=== PATIENT | male | born 1990 ===

== ENCOUNTER → 2020-09-05 08:31 | Outpatient (BNVA) | payer OTHER, SELFPAY | PROVIDERS: PCP Physician Assistant; Referring Provider Physician Assistant; Visit Provider Psychiatry & Neurology Neurology | DX: Z76.89 Persons encountering health services in other specified circumstances (principal) ==

== ENCOUNTER 2020-10-19 16:57 | Outpatient (REF) | payer OTHER, SELFPAY | END 2020-10-19 16:58 | disposition home or self-care (01) | LOC: HO.LAB 16:57 | PROVIDERS: Visit Provider Internal Medicine | DX: Z20.828 Contact with and (suspected) exposure to other viral communicable diseases (principal) | CPT/HCPCS: C9803; U0003 ==

== ENCOUNTER 2020-10-30 10:00 | Outpatient (REF) | payer OTHER, SELFPAY ==
[2020-10-30 10:33] LABS: COVID-19 Test Positive (Negative)
== END 2020-10-30 10:01 | disposition home or self-care (01) ==
LOC: HO.EMPCOV 10:00
PROVIDERS: Visit Provider Internal Medicine
DX: Z20.828 Contact with and (suspected) exposure to other viral communicable diseases (principal)
CPT/HCPCS: 87635; C9803

== ENCOUNTER 2021-01-03 14:57 | Outpatient (REF) | payer OTHER, SELFPAY ==
--- NOTE | ~2021-01-03 | US_ITS ---
EXAMINATION: US RETROPERITONEAL LIMITED (RENAL ONLY) CLINICAL INFORMATION: Nephrolithiasis. COMPARISON: None TECHNIQUE: Routine weeks-scale imaging of kidneys is performed. FINDINGS: RIGHT KIDNEY: 11.5 x 6.0 x 5.8 cm (SAG x AP x TRV). The kidney is normal in size, contour, and echogenicity. Renal cortical thickness is normal. No calculi or focal parenchymal lesions. No hydronephrosis. LEFT KIDNEY: 1.7 x 1.2 x 1.7 cm (SAG x AP x TRV). The kidney is normal in size, lobulated contour, and normal echogenicity. Renal cortical thickness is normal. No calculi or focal parenchymal lesions. No hydronephrosis. There is an anechoic cyst in the upper pole measuring 1.7 x 1.2 x 1.7 cm. US/US renal BI IMPRESSION: Small anechoic cyst upper pole left kidney. No echogenic stones, solid mass or hydronephrosis seen in either kidney.
== END 2021-01-03 14:58 | disposition home or self-care (01) ==
LOC: HO.US 14:57
PROVIDERS: Visit Provider Urology
DX: N20.0 Calculus of kidney (principal)
CPT/HCPCS: 76775

== ENCOUNTER → 2023-03-05 10:20 | Outpatient (BNVA) | payer OTHER, SELFPAY | PROVIDERS: PCP Physician Assistant; Visit Provider Physician Assistant | DX: Z13.89 Encounter for screening for other disorder (principal) | CPT/HCPCS: 99203 ==

== ENCOUNTER → 2023-03-12 09:26 | Outpatient (BNVA) | payer OTHER, SELFPAY | PROVIDERS: PCP Physician Assistant; Visit Provider Physician Assistant | DX: Z13.89 Encounter for screening for other disorder (principal) | CPT/HCPCS: 99213 ==

== ENCOUNTER → 2023-03-27 10:25 | Outpatient (BNVA) | payer OTHER, SELFPAY | PROVIDERS: PCP Nurse Practitioner Family; Visit Provider Physician Assistant | DX: Z13.89 Encounter for screening for other disorder (principal) | CPT/HCPCS: 99213 ==

== ENCOUNTER → 2023-04-03 11:10 | Outpatient (BNVA) | payer OTHER, SELFPAY | PROVIDERS: PCP Nurse Practitioner Family; Visit Provider Physician Assistant | DX: Z13.89 Encounter for screening for other disorder (principal) | CPT/HCPCS: 99213 ==

== ENCOUNTER 2023-04-10 09:00 | Outpatient (RCR) | payer OTHER, SELFPAY ==
--- NOTE | 2023-03-13 09:45 | MHC.PT.EP ---
[facility] [place] Office [place] Office [place] Office [address] Suri Ledbetter [address] [phone] F: [phone] F: [phone] F: [phone] F: [phone] Physical Therapy Plan of Care Date of Evaluation: Date of Surgery: Diagnosis: Left lumbar strain Assessment: Patient is a 33 year old R handed male who presents with s/s consistent with left lumbar strain, low back pain. He works with daily job demands including maintenance. His job has significant physical demands requiring optimal body mechanics. Patient past medical history is unremarkable. Current impairments include pain, body mechanics, posture, ROM, strength, activity tolerance and functional mobility. Functional limitations include decreased ability to squat, bend, lift, sit, walk, stand, and sleep. Patient is motivated with good rehab potential. Skilled PT will address impairments and functional limitations in order to achieve goals. Frequency and Duration: The patient will be seen 2x/week for 5 weeks Short Term Goals: I with HEP - 2 weeks Demo proper transfer and lifting body mechanics - 3 weeks 90/90 lacking < 20 - 3 weeks Lumbar AROM 75% and pain free all directions - 3 weeks Shelter Goals: Oswestry 10% or less - 5 weeks Pain free return to all ADLs and work duties - 5 weeks Lumbar AROM 100% and pain free - 5 weeks Treatment Plan: Modalities to reduce pain, spasms and effusion. Manual therapy to restore motion and function. Therapeutic exercise to improve strength and flexibility. Neuromuscular re-education for posture and balance. Therapeutic activities to return to functional activities of daily living. Electronically signed by: Jaret Martinez, PT Please sign and return to therapist. Thank you for your referral.
--- NOTE | 2023-05-13 08:18 | MHC.PT.DC ---
[facility] [place] Office [place] Office [place] Office [address] Suri Ledbetter [address] [phone] F: [phone] F: [phone] F: [phone] F: [phone] Physical Therapy Discharge Report Diagnosis: Left lumbar strain Date of Surgery: Date of Evaluation: 03/13/23 Date of Discharge: 04/18/23 Treatments to Date: 6 Cancellations to Date: No Shows to Date: Discharge Status: Achieved Goals Improved Function Independent with HEP Discharge Summary: 04/10/23: we reviewed ex and core stab, mechanics and postures. pt with no s/s at this time. we will d/c to HEP as he is I with HEP and has met all goals. 04/07/23: continues good progress on s/s. we will plan to d/c to HEP NV. 04/03/23: pt progressing well overall. progressing on goals. likely on pace to d/c to HEP next week. 03/31/23: pt continues to feel better overall, good carryover and body mechanics. follows cues well. 03/27/23: pt has been feeling much better overall. no radicular s/s. lacking 24 b/l. improved understanding of body mechanics. continue to progress as tolerated. 03/24/23: reduced s/s overall with skilled PT. compliant with HEP and notes s/s have improved with program. we were able to progress today and progress HEP. Patient is a 33 year old R handed male who presents with s/s consistent with left lumbar strain, low back pain. He works with daily job demands including maintenance. His job has significant physical demands requiring optimal body mechanics. Patient past medical history is unremarkable. Current impairments include pain, body mechanics, posture, ROM, strength, activity tolerance and functional mobility. Functional limitations include decreased ability to squat, bend, lift, sit, walk, stand, and sleep. Patient is motivated with good rehab potential. Skilled PT will address impairments and functional limitations in order to achieve goals. Electronically signed by: Jaret Martinez, PT Please sign and return to therapist. Thank you for your referral.
== END 2023-05-13 08:18 | disposition home or self-care (01) ==
LOC: HO.PTCHIC 09:00
PROVIDERS: PCP Physician Assistant; Visit Provider Physician Assistant
DX: S39.012D Strain of muscle, fascia and tendon of lower back, subsequent encounter (principal)
CPT/HCPCS: 97110; 97161

== ENCOUNTER 2024-03-23 15:03 | Outpatient (AMB) | payer OTHER, SELFPAY ==
--- NOTE | 2024-03-23 15:42 | MHC.PC.OV ---
Vital Signs 03/23/24 15:45 Height 5 ft 7 in Weight 192 lb 6 oz BMI 30.1 BP 120/76 Blood Pressure Location Lt brachial Position Sitting Pulse 90 Pulse Source Pulse Oximeter Pulse Oximetry (%) 98 Oxygen Delivery Method Room Air Intake Visit Reasons: Annual exam Intake Note: Patient is here today for a physical. Supplier Relationship Director Required: No Accompanied by: Self / Same As Patient Allergies No Known Allergies [No Known Allergies*] Allergy (Verified 03/23/24 15:57) Medication List - Last Reconciled 03/23/24 by Derrick Cerrato PA-C No Known Home Meds Tobacco use date assessed: 03/23/24 Dental Screening Dental Screen Date: 03/23/24 Did you have a dental visit in the last 12 months?: Yes Did you have a dental problem in the last 6 months where you did not have access to dental care?: No Was dental information given to patient?: Patient has dentist HPI Annual exam HPI Details Patient is a 34-year-old male here today for routine annual physical. Patient has a past medical history significant for vitamin-D deficiency and slightly elevated liver enzymes. Concern--> no concerns today. Willing to get fasting labs done Vaccine: Declined FLu and COVID up-to-date with tetanus vaccine [facility] Surgical History No pertinent past surgical history Family History Father No problems noted. Mother Diabetes Acute CVA (cerebrovascular accident), Onset Age: 0m 0d Brother In good health Sister In good health Son In good health Son In good health Daughter In good health Daughter In good health Daughter In good health Social History (Updated 03/23/24 @ 16:00 by Derrick Cerrato PA-C) Housing: Apartment Alcohol intake: never Patient Tobacco Use Status: Former Tobacco user Quit Date: 2009 Tobacco use type: Cigarette e-Cigarette/Vaping Use: Never Used service: No Current occupational status: employed Current occupation: [employer] Cognitive needs: No Hearing needs: No Vision needs: No Questionnaire PHQ-9 Over the last 2 weeks, how often have you been bothered by any of the following problems? 1. Little interest or pleasure in doing things: not at all 2. Feeling down, depressed, or hopeless: not at all 3. Trouble falling or staying asleep, or sleeping too much: not at all 4. Feeling tired or having little energy: not at all 5. Poor appetite or overeating: not at all 6. Feeling bad about yourself - or that you are a failure or have let yourself or your family down: not at all 7. Trouble concentrating on things, such as reading the newspaper or watching television: not at all 8. Moving or speaking so slowly that other people could have noticed. Or the opposite - being so fidgety or restless that you have been moving around a lot more than usual: not at all 9. Thoughts that you would be better off or of hurting yourself in some way: not at all Total score: 0 Depression Screening Interpretation: Negative Depression Screening Done: Yes 62288 - PHQ-9 Billing: Yes Source: Developed by Drs. Jose Urias, Daniela Montanez, Bola Avery and colleagues, with an educational vesna from [employer]. Thrive Questionnaire Date Thrive assessed: 03/23/24 I am a: Patient What is your living situation today?: I have a steady place to live Within the past 12 months, did the food you bought not last and you didn't have the money to get more?: Never true Within the past 12 months, did you worry whether your food would run out before you got money to buy more?: Never true Do you have trouble paying for medicines?: No Do you have trouble getting transportation to medical appointments?: No Do you have trouble paying your heating and electricity bill?: No Do you have trouble taking care of your child, family member or friend?: No Do you have trouble with day-to-day activities such as bathing, preparing meals, shopping, managing finances, etc.?: No Are you currently unemployed and looking for a job?: No Are you interested in more education?: No Please select the resources that you would like help with: None Currently or been in a relationship where the following occur: no concerns reported THRIVE Score: 0 AUDIT C Alcohol Use Questionnaire (AUDIT-C) 1. How often do you have a drink containing alcohol?: Never 3. How often do you have six or more drinks on one occasion?: Never Total Score: 0 Score Reviewed/Action Taken: No MOSES-7 AMB Questionnaire MOSES-7 Date MOSES - 7 assessed: 03/23/24 Feeling nervous, anxious, or on edge: 0 = Not at all Not being able to stop or control worryin = Not at all Worrying too much about different things: 0 = Not at all Trouble relaxin = Not at all Being so restless that it is hard to sit still: 0 = Not at all Becoming easily annoyed or irritable: 0 = Not at all Feeling afraid as if something awful might happen: 0 = Not at all Total MOSES-7 score (0-4 normal; 5-9 mild; 10-14 moderate; 15-21 severe): 0 Source: Developed by Drs. Jose Urias, Daniela Montanez, Bola Avery and colleagues, with an educational vesna from [employer]. MOSES-7 Assessment Billing MOSES-7 Assessment Tool: MOSES-7 Assessment 28555 Review of Systems Const Denies body aches, Denies chills, Denies excessive sweating, Denies fatigue, Denies fever(s) and Denies headache(s) Eyes Denies blurry vision ENT Denies dysphagia, Denies vertigo, Denies dizziness, Denies headache(s), Denies hearing loss and Denies tinnitus Card Denies chest pain, Denies chest pain with activity, Denies syncope, Denies irregular heart rhythm and Denies dyspnea Resp Denies chest congestion, Denies cough, Denies hemoptysis, Denies dyspnea and Denies wheezing GI Denies abdominal pain, Denies melena, Denies hematochezia, Denies coffee ground emesis, Denies dysphagia, Denies diarrhea, Denies nausea and Denies vomiting Denies difficulty urinating, Denies dysuria, Denies urinary frequency, Denies urinary hesitancy and Denies urinary urgency Musc Denies arthralgias, Denies limited range of motion, Denies muscle cramps and Denies muscle weakness Skin/Breast Denies rash and Denies skin ulcer Neuro Denies Abnormal speech present, Denies confusion, Denies vertigo, Denies dizziness, Denies syncope, Denies headache(s), Denies memory loss and Denies seizure-like activity Psych Denies anxiety, Denies confusion, Denies depression, Denies memory loss, Denies panic attacks and Denies paranoia Endo Denies excessive sweating, Denies fatigue, Denies flushing, Denies polydipsia and Denies polyuria Shai/Lymph Denies easy bleeding and Denies easy bruising Aller/Immun Denies wheezing Physical exam (Primary Care) Vital Signs: Last Vital Signs Pulse 90 03/23/24 15:45 BP 120/76 03/23/24 15:45 Pulse Ox 98 03/23/24 15:45 Oxygen Delivery Method Room Air 03/23/24 15:45 BMI result Body Mass Index 30.1 Tobacco/Smoking Status: Tobacco use Status Tobacco use date assessed 03/23/24 03/23/24 15:52 Patient Tobacco Use Status Former Tobacco user 03/23/24 16:00 Tobacco use type Cigarette 03/23/24 16:00 e-Cigarette/Vaping Use Never Used 03/23/24 16:00 PHQ-9: PHQ-9 Score PHQ-9: Total score 0 03/23/24 16:01 Depression Screening Interpretation: Negative Thrive Assessment: Date of Thrive Assessment Date Thrive assessed 03/23/24 03/23/24 15:43 Currently or been in a relationship where the following occur: no concerns reported Const General: cooperative, comfortable, no acute distress, alert and awake; No confusion Nutritional Appearance: well nourished Orientation/consciousness: oriented to person, oriented to place, patient oriented x3 and No confusion HENMT Head: Yes normocephalic Ears: external ears normal and TM's normal bilaterally General nose exam: Normal nasal mucous membranes and turbinates present Face and sinus: No sinus tenderness Mouth: Normal oral and palatal mucosa present and tongue normal Teeth and gingiva: dentition normal and gingiva normal Throat: Yes posterior oropharynx normal, Yes tonsils normal and Yes uvula midline Eyes Conjunctivae: conjunctivae normal Sclerae: sclerae normal Pupils: Equal, round and reactive pupils present EOM: EOMs intact bilaterally Direct Ophthalmoscopy: No no photophobia Neck Neck: Yes no lymphadenopathy, No tender and Yes no JVD Thyroid: Thyroid normal Carotids: no bruits Chest Chest palpation & inspection: no tenderness Resp Effort & Inspection: normal respiratory effort, no audible wheezes, not labored and no stridor Auscultation: no crackles, no rales, no rhonchi and no wheezes Cardio Jugular venous distension: no JVD Rate: regular rate, not bradycardic and not tachycardic Rhythm: regular rhythm Heart sounds: no murmurs and normal S1 and S2 Bruits: no carotid bruits Peripheral pulses: Peripheral pulses 2+ throughout GI Inspection: Yes normal to inspection, No abdominal wall ecchymosis and No visible herniation Palpation (GI): Soft to palpation, nontender, no guarding, not rigid and No hepatosplenomegaly present Auscultation: normoactive bowel sounds General: Yes no CVA tenderness Back/Spine/Pelvis Back: no CVA tenderness and No back tenderness Cervical Spine: cervical ROM normal Thoracic/Lumbar Spine: thoracic and lumbar spine normal to inspection, straight leg raise negative bilaterally, No thoraco-lumbar ROM limited and No lumbar spinal tenderness Skin General skin exam: no rashes or lesions noted and dry skin Lesions: no lesions Rashes: no rashes Wounds: no wounds Neuro General: oriented to person, oriented to place, patient oriented x3, CN's II-XI intact bilaterally and No confusion Cranial nerves: Yes Equal, round and reactive pupils present and Yes Normal accommodation reflex present Cognition (Neuro): normal cognition Speech: No Abnormal speech present Gait exam (Neuro): Normal gait present Motor exam (neuro): 5/5 motor strength present throughout Extrem Right upper extremity: full ROM; no cyanosis Left upper extremity: full ROM; no cyanosis Right lower extremity: no edema Left lower extremity: no edema Psych Appearance: grossly normal Mental Status: mental status grossly normal Speech and movement: Normal speech and movement present Affect: normal affect Attitude: cooperative Thought process: Normal thought process present Assessment and Plan Assessment & Plan (1) Annual physical exam: Code(s): Z00.00 - Encounter for general adult medical examination without abnormal findings (2) Screening for diabetes mellitus (DM): Code(s): Z13.1 - Encounter for screening for diabetes mellitus (3) Vitamin D deficiency: Code(s): E55.9 - Vitamin D deficiency, unspecified Plan: Will recheck his vitamin-D Orders: Orders Vitamin D 25-OH Total 03/23/24 E55.9 - Vitamin D deficiency, unspecified Comprehensive [place]. Panel Fast 03/23/24 Z13.1 - Encounter for screening for diabetes mellitus Coding Level of Care Code Est Pt Prev Care 18-39y(98240) Diagnoses Annual physical exam Z00.00 Screening for diabetes mellitus (DM) Z13.1 Vitamin D deficiency E55.9 Additional Codes MOSES-7 Assessment Billing - MOSES-7 Assessment Tool: MOSES-7 Assessment 00220 ([id number])
[2024-03-23 15:45] VITALS: BP 120/76; PULSE 90; O2SAT 98; BMI 30.1
== END 2024-03-23 16:11 | disposition home or self-care (01) ==
PROVIDERS: PCP Physician Assistant; Visit Provider Physician Assistant
DX: Z00.00 Encounter for general adult medical examination without abnormal findings (principal); Z13.1 Encounter for screening for diabetes mellitus; E55.9 Vitamin D deficiency, unspecified
CPT/HCPCS: 99395

== ENCOUNTER 2024-07-19 09:54 | Emergency (ER) | payer OTHER, SELFPAY ==
--- NOTE | ~2024-07-19 | XR_ITS ---
EXAMINATION: XR CHEST CLINICAL INFORMATION: Chest tightness and cough COMPARISON: None available. TECHNIQUE: 2 views of the chest were obtained. FINDINGS: Lungs are well-inflated and clear. Trachea is midline in position. No interstitial disease, consolidation or mass. No pleural effusion or pneumothorax. Cardiac silhouette and pulmonary vessels are normal in size. The mediastinum and deena have normal contour. Thoracic spine and ribs are unremarkable. Mild pectus excavatum. The visualized upper abdomen is normal. XR/XR chest 2V IMPRESSION: Lungs have a normal appearance. No acute cardiopulmonary abnormality.
[2024-07-19 10:10] VITALS: BP 112/72; PULSE 76; RESP 16; TEMP 36.9; O2SAT 96; BMI 28.9
--- NOTE | 2024-07-19 11:00 | ED_ITS ---
HPI - URI/Sore Throat General Chief Complaint: Upper Respiratory Symptoms Stated Complaint: Sore throat Time Seen by Provider: 07/19/24 10:46 Source: patient, RN notes reviewed and old records reviewed Mode of arrival: ambulatory Limitations: no limitations History of Present Illness ED Provider: Carmenza Tomas PA-C HPI Narrative: 34 year old male presents today with 1 week of a sore throat and generally feeling unwell. States sore throat is burning and painful when swallowing. Reports subjective fever 2-3 days ago at night. Endorses myalgias, headache, sore throat, subjective fever, non-productive cough. Denies, fatigue, tiredness, chest pain, SOB, difficulty breathing, no difficulty eating or decreased appetite, NVD, abdominal pain. Reports there are sick contacts around him. Recen t travel to [place]. Has not tested for any viral illness. Related Data Home Medications ?Medication ?Instructions ?Recorded ?Confirmed No Known Home Meds 03/23/24 03/23/24 Allergies Allergy/AdvReac Type Severity Reaction Status Date / Time No Known Allergies Allergy Verified 07/19/24 10:13 [No Known Allergies*] Review of Systems Review of Systems: Constitutional: +Fever (subjective), No Chills ENT/Mouth: No Ear Pain, No Nasal Congestion, No Sinus Pain, No Hoarseness, +sore throat, + Rhinorrhea, No Swallowing Difficulty Cardiovascular: No Chest Pain, No SOB Respiratory: +Cough(non-productive), No Sputum, No Wheezing Gastrointestinal: No Nausea, No Vomiting, No Diarrhea, No Constipation, No Abdominal pain Musculoskeletal: + Myalgias, No Joint Swelling Skin: No Skin Lesions, No rash Neuro: No Weakness Yes all other systems are reviewed and are negative Constitutional: Constitutional: Reports as per HPI [facility] Past Medical History Attestation statement: The following information was validated with the patient. Source: old records reviewed Surgical History No pertinent past surgical history Family History Family History Father No problems noted. Mother Diabetes Acute CVA (cerebrovascular accident), Onset Age: 0m 0d Brother In good health Sister In good health Son In good health Son In good health Daughter In good health Daughter In good health Daughter In good health Social History Social History Housing: Apartment Alcohol intake: never Patient Tobacco Use Status: Former Tobacco user Tobacco use type: Cigarette e-Cigarette/Vaping Use: Never Used Advance Directives: No Advance Directives Information Provided: No service: No Current occupational status: employed Current occupation: [employer] Cognitive needs: No Hearing needs: No Vision needs: No Physical Exam Vital Signs: Vital Signs: Last Vital Signs Temp 98.4 F 07/19/24 10:10 Pulse 76 07/19/24 10:10 Resp 16 07/19/24 10:10 BP 112/72 07/19/24 10:10 Pulse Ox 96 07/19/24 10:10 BMI result Body Mass Index 28.9 Const: General: cooperative, healthy appearing and no acute distress Nutritional Appearance: well nourished Orientation/consciousness: patient oriented x3 Limitations: no limitations HEENT: Head: Yes normal to inspection and Yes atraumatic Ears: hearing grossly normal bilaterally, external ears normal and TM's normal bilaterally General nose exam: Normal external nose present Face and sinus: Yes normal facial exam Mouth: Normal oral and palatal mucosa present and no drooling Teeth and gingiva: dentition normal Throat: Yes posterior oropharynx normal, Yes tonsils normal, Yes uvula midline, No peritonsillar mass, No uvula laterally displaced and No uvular edema Eyes: General: appearance normal, both eyes and all related structures EOM: EOMs intact bilaterally Direct Ophthalmoscopy: normal light reflex Neck: Neck: Yes normal visual inspection, Yes full ROM, Yes no lymphadenopathy, Yes no meningeal signs and Yes trachea midline Thyroid: Thyroid normal Chest: Chest palpation & inspection: normal inspection of the chest Resp: Effort & Inspection: normal respiratory effort, no respiratory distress and no stridor Auscultation: clear to auscultation bilaterally and no wheezes Cardio: Rate: regular rate Heart sounds: S1 normal heart sound present and S2 normal heart sound present GI: Inspection: Yes normal to inspection Palpation (GI): Soft to palpation, nontender, no guarding and not rigid Skin: Rashes: no rashes Wounds: no wounds Neuro: General: patient oriented x3, tone normal and no meningeal signs Cranial nerves: Yes CN's II-XII intact bilaterally Gait exam (Neuro): Normal gait present Extrem: General: Yes normal to inspection Psych: Appearance: grossly normal Mental Status: mental status grossly normal Speech and movement: Normal speech and movement present Affect: normal affect Attitude: cooperative Thought process: Normal thought process present Thought content: Normal thought content present Insight: Good insight present (Psych) Judgement: Good judgement present (Psych) Course Course Course Narrative: XR chest 2V IMPRESSION: Lungs have a normal appearance. No acute cardiopulmonary abnormality. -COVID/flu/RSV and rapid strep negative Results discussed with patient including worrisome signs and symptoms and strict return precautions, and when to return to the emergency department. They verbalized understanding and feel safe for discharge at this time. Medical Decision Making Medical Decision Making [facility] Narrative: 34 year old male presents today with sore throat, fatigue, subjective fever, headache, myalgias, sore throat, nonproductive cough x1 week. On exam vital signs stable, NAD, nontoxic appearing, lungs CTA, oropharynx WNL. No evidence of [employer]/retropharyngeal abscess. Concern for viral illness. Rule out pneumonia/bronchitis. Low suspicion for ACS/PE. Plan: Viral testing, CXR Please refer to course for remaining clinical decision making, interpretation of labs/imaging results, and discussions with consultants and/or family members. Differential Diagnosis Differential Diagnoses: The differential diagnosis associated with the presentation includes As above Lab Data [facility] Lab Attestation statement: I reviewed the patient's lab results. Labs: Lab Results 07/19/24 Range/Units 10:59 Influenza Type A (PCR) NEGATIVE (Negative) Influenza Type B (PCR) NEGATIVE (Negative) RSV RNA Qual (PCR) NEGATIVE (Negative) SARS-CoV-2 RNA (RT-PCR) NEGATIVE (Negative) S. pyogenes GrpA DARBY Negative (Negative) Radiology Impression Discussion of test interpretation with radiology: I have reviewed the radiologist's reading. External Record Review External record reviewed: Inpatient record, Office record, Outpatient record, Prior outpatient labs, Prior outpatient radiology, Primary care record and Outside ED record Tests considered The following testing was considered but not selected: As above Prescription Management I considered prescription management with: Pain Medication and Antibiotic Discharge Plan Discharge Clinical Impression: Upper respiratory infection Patient Disposition: Home, Self-Care Instructions: Viral Syndrome (ED) Additional Instructions: You have a virus No antibiotics are indicated at this time Make sure you are staying hydrated. Drink plenty of fluids. Rest Alternate Tylenol and Motrin at home as needed for body aches and fever Follow-up with your doctor. If symptoms persist or worsen return to the emergency department *If you are a child & not tolerating liquid or urinating for more than 6 hours, or fevers are uncontrolled with medications at home, return to the emergency department* Prescriptions: No Action No Known Home Meds Referrals: Derrick Cerrato PA-C [Primary Care Provider] - 5 days Stand Alone Forms: Work/School Release Print Language: Brazilian
[2024-07-19 11:14] LABS: IDNOW Serial# 08D9AD1C
[2024-07-19 11:15] LABS: Strep A Nucleic Acid Negative (Negative)
[2024-07-19 11:49] LABS: Influenza A PCR NEGATIVE (Negative); Influenza B PCR NEGATIVE (Negative); Resp Syncy Virus RNA Qual PCR NEGATIVE (Negative); SARS COV2 PCR INHOUSE NEGATIVE (Negative)
[2024-07-19 12:38] VITALS: BP 112/72; PULSE 76; RESP 16; TEMP 36.9; O2SAT 96
== END 2024-07-19 12:39 | disposition home or self-care (01) ==
PROVIDERS: Emergency Provider Emergency Medicine; PCP Physician Assistant
DX: J06.9 Acute upper respiratory infection, unspecified (principal); J02.9 Acute pharyngitis, unspecified; R50.9 Fever, unspecified; M79.10 Myalgia, unspecified site; R51.9 Headache, unspecified; Z03.818 Encounter for observation for suspected exposure to other biological agents ruled out; R05.9 Cough, unspecified
CPT/HCPCS: 0241U; 71046; 87651; 99283

== ENCOUNTER 2025-01-18 00:13 | Emergency (ER) | payer OTHER, SELFPAY ==
[2025-01-18 00:24] VITALS: BP 118/65; PULSE 67; RESP 16; TEMP 37; O2SAT 98; BMI 29.5
--- NOTE | 2025-01-18 06:29 | ED.EXTPRO ---
HPI - Extremity Problem General Chief complaint: Extremity Injury, Upper Stated complaint: right finger swollen? Time Seen by Provider: 01/18/25 06:15 Source: patient Mode of arrival: ambulatory Limitations: no limitations History of Present Illness ED Provider: Dr. Anderson Stacy HPI Narrative: 34-year-old male with no significant past medical history who presents emergency department for evaluation of difficulty flexing his right thumb at the PIP joint x1 month with symptoms not improving. The patient is left handed. 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 He does not recall any specific injury. He states that he can passively move his PIP joint but can not actively flex the joint. He has no difficulty extending the PIP joint. He states that he was having some pain on the medial and lateral aspect of the MCP joint with some discomfort the film this muscle of the thumb. Related Data Previous Rx's ?Medication ?Instructions ?Recorded prednisone 20 mg tablet 60 mg (3 x 20 mg) PO DAILY 5 days 01/18/25 #15 tabs Allergies Allergy/AdvReac Type Severity Reaction Status Date / Time No Known Allergies Allergy Verified 01/18/25 00:27 [No Known Allergies*] [facility] Past Medical History Surgical History No pertinent past surgical history Family History Family History Father No problems noted. Mother Diabetes Acute CVA (cerebrovascular accident), Onset Age: 0m 0d Brother In good health Sister In good health Son In good health Son In good health Daughter In good health Daughter In good health Daughter In good health Social History Social History Housing: Apartment Alcohol intake: never Patient Tobacco Use Status: Former Tobacco user Tobacco use type: Cigarette Smoked in Last 30 Days: No e-Cigarette/Vaping Use: Never Used Use of substances other than those prescribed or required for medical reasons: No Advance Directives: No Advance Directives Information Provided: Yes Do you have a plan to hurt others: No Plan service: No Current occupational status: employed Current occupation: [employer] Cognitive needs: No Hearing needs: No Vision needs: No Physical Exam Vital Signs: Vital Signs: Last Vital Signs Temp 98.6 F 01/18/25 00:24 Pulse 67 01/18/25 00:24 Resp 16 01/18/25 00:24 BP 118/65 01/18/25 00:24 Pulse Ox 98 01/18/25 00:24 O2 Del Method Room Air 01/18/25 00:24 BMI result Body Mass Index 29.5 Vital signs were normal Exam: Right thumb: Patient has normal capillary refill, no skin lesions, no erythema, patient has tenderness palpation over the medial and lateral aspect of the MCP joint with some mild tenderness over the thalamus, patient was able to extend the PIP joint but not flex the PIP joint. He has no difficulty with moving his MCP joint. Medical Decision Making Medical Decision Making MDM Narrative: 34-year-old male with no past medical history who presents emergency department for evaluation of difficulty flexing his PIP joint of his right thumb x1 month with the symptoms not improving. He does not recount any injury but he does use his hands frequently since he worse and construction. Exam reveals inability to flex the PIP joint of the thumb but he was no difficulty extending the joint, he was thumb is neurovascularly intact. He was mild tenderness palpation of the PIP joint and thalamus of the thumb Differential diagnosis: ?Includes but is not limited to flexor tendon injury, flexor tendonitis, nerve injury Course: This time I do not have a clear etiology for the patient's inability to flex his PIP joint of his right thumb, I suspect that he may have flexor tendonitis. Patient was placed in a Velcro thumb spica splint by me. Patient was started on prednisone 60 mg once a day for 5 days. The patient will need to follow-up with our orthopedic group/hand surgeon for re-evaluation. Patient was given a work note to return to work tomorrow if there was limited duty with limited use of the right hand, patient was to wear the thumb spica splint until he was medically cleared by the orthopedic group. Admission/Observation Consideration of admission/observation: Escalation of care including admission/observation considered (No) Prescription Management I considered prescription management with: Other (Anti-inflammatory steroids: Prednisone) Procedures Orthopedic Splinting/Casting Right thumb spica splint application: Side: right Upper Extremity Injury Location: finger (Right thumb) Upper Extremity Immobilizer: thumb spica (Velcro thumb spica splint) Additional Comments: The Velcro thumb spica splint was placed on the patient's right thumb and forearm by me. Patient's thumb is neurovascularly intact after application of the splint Discharge Plan Discharge Clinical Impression: Thumb tendonitis Patient Disposition: Home, Self-Care Instructions: Tendinitis (ED) Additional Instructions: You are unable to flex/bend your thumb at the PIP (Proximal Inter -Phalangeal) joint. Since you did not injure this joint, I suspect that you have inflammation of the tendons that allow you to bend/flex the joint. This is called tendonitis. Take prednisone 20 mg pills, 3 pills once a day for 5 days. While you ?are taking prednisone, do not take any NSAIDs (Motrin, Advil, ibuprofen, Aleve, naproxen). This is a strong anti-inflammatory medication and hopefully will help reduce the inflammation in your tendon. Wear the thumb spica splint until your re-evaluated by our orthopedic group/hand surgeon. Follow-up with your doctor in 2 days. Please return to the emergency department if your symptoms get worse or if you develop any symptoms that are concerning to you. Prescriptions: New prednisone 20 mg tablet 60 mg PO DAILY 5 Days Qty: 15 0RF Referrals: Evita Marcos MD [Physician] - 1 week (No reported injury. Unable to flex right thumb at the PIP joint x1 month, suspect tendonitis but needs re-evaluation. Placed in thumb spica splint and started on prednisone 60 mg once a day for 5 days.) Stand Alone Forms: Work/School Release Print Language: Maltese
[2025-01-18 06:38] VITALS: BP 125/77; PULSE 54; RESP 16; TEMP 36.4; O2SAT 98
[2025-01-18 06:54] VITALS: BP 125/77; PULSE 54; RESP 16; TEMP 36.4; O2SAT 98
== END 2025-01-18 06:56 | disposition home or self-care (01) ==
PROVIDERS: Emergency Provider Emergency Medicine Emergency Medical Services; PCP Physician Assistant
DX: M79.644 Pain in right finger(s) (principal); M77.8 Other enthesopathies, not elsewhere classified
CPT/HCPCS: 29125; 99283; 99284

== ENCOUNTER 2025-01-25 12:46 | Outpatient (AMB) | payer OTHER, SELFPAY ==
--- NOTE | 2025-01-25 12:57 | MHC.OFFVIS ---
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 Patient reports intermittent locking in his thumb at his IP joint for about 2 months. States having a sharp burning sensation with flexing his finger. Denies numbness or tingling. 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 He does not recall any specific injury. He was give a hand brace and return to light duty work until re-evaluated with Dr Marcos. No other tx. 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 He was seen in the ED on 01/18/25, fitted for a velcro thumb spica splint and given a tapering 5-day course of Prednisone. He complains of pain & an inability to actively flex his thumb at the IP joint without it locking & burning . He says this began ~2 months ago. 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 This is difficult with his limited thumb ROM. He denies any numbness, tingling, locking, catching, prior injuries or other prior treatments. [facility] Surgical History No pertinent past surgical history Family History Father No problems noted. Mother Diabetes Acute CVA (cerebrovascular accident), Onset Age: 0m 0d Brother In good health Sister In good health Son In good health Son In good health Daughter In good health Daughter In good health Daughter In good health Social History Housing: Apartment Alcohol intake: never Patient Tobacco Use Status: Former Tobacco user Tobacco use type: Cigarette e-Cigarette/Vaping Use: Never Used service: No Current occupational status: employed Current occupation: [employer] Cognitive needs: No Hearing needs: No Vision needs: No Review of Systems Const All systems reviewed & are unremarkable except as noted in HPI and below Physical Exam Vital Signs: BMI result Body Mass Index 29.5 Const General: cooperative, healthy appearing and no acute distress Orientation/consciousness: patient oriented x3 HEENT Head: Yes normocephalic and Yes atraumatic Eyes EOM: EOMs intact bilaterally Resp Effort & Inspection: normal respiratory effort and able to speak in complete sentences Cardio Jugular venous distension: no JVD Skin General skin exam: turgor normal Rashes: no rashes Neuro General: patient oriented x3 Extrem Other: Evaluation of Right Upper Extremity: The patient is alert, oriented, and in no acute distress Neuro: Median, Ulnar, Radial nerves motor and sensory intact and sensation is normal to the tips of all digits Vascular: Cap refill brisk ROM: He can bring his fingers closed to a fist, and extend all his digits Visible & palpable locking & catching of the thumb Tender over the thumb a1 william Skin: No lacerations or abrasions. General: No Ecchymosis. No Erythema or evidence of infection. Psych Appearance: grossly normal Affect: normal affect Attitude: cooperative Office Procedures AMB Fracture Care Details: No fracture, injection Fracture Billing Code: Fracture Billing Code Assessment & Plan Assessment & Plan (1) Trigger thumb, right thumb: Code(s): M65.311 - Trigger thumb, right thumb Category: Medical Plan Assessment & Plan: 1. Right trigger thumb I educated him about this condition I discussed operative and non-operative treatment options The patient would like to proceed with an injection He has recently started hid Prednisone taper yesterday, and has 3 days remaining. I recommend he stop his Prednisone dosage as he wants to proceed with a steroid injection today. He expressed understanding Injection #1: The risks and benefits of a steroid injection including but not limited to risk of damage to blood vessels, nerves, tendons, infection, skin bleaching, failure to improve symptoms, increased pain, and possible need for further injections or other intervention were discussed with the patient and the patient wishes to proceed with the steroid injection. Once consent was obtained, I sterilely prepped the area over the A1 william of the flexor tendon sheath of the Right thumb. I then injected the flexor tendon sheath with a combination of 1 mL of dexamethasone (4mg/ml), and 1% lidocaine. The patient tolerated the procedure well with no complications. If the patient continues to have locking and catching 4-6 weeks following this injection, they may call to schedule appointment to discuss alternative treatment options Scribed for Evita Marcos MD by Charlie Jones biomedical service engineer, on 01/25/25 at 1:35 PM, EST. Coding Level of Care Code New Pt Level 4 (86573) Diagnoses Trigger thumb, right thumb M65.311 CPT Codes Fracture Care - Fracture Billing Code: Fracture Billing Code ([id number])
[2025-01-25 13:02] VITALS: BMI 29.5
== END 2025-01-25 14:28 | disposition home or self-care (01) ==
PROVIDERS: PCP Physician Assistant; Visit Provider Orthopaedic Surgery
DX: M65.311 Trigger thumb, right thumb (principal)
CPT/HCPCS: 20550; 99204

== ENCOUNTER → 2025-01-25 12:46 | Outpatient (BNVA) | payer OTHER, SELFPAY | PROVIDERS: PCP Physician Assistant; Visit Provider Orthopaedic Surgery | DX: M65.311 Trigger thumb, right thumb (principal) | CPT/HCPCS: 20550; 99202; J1100; J2003 ==

== ENCOUNTER 2025-03-29 14:56 | Outpatient (AMB) | payer OTHER, SELFPAY ==
--- NOTE | 2025-03-29 15:16 | MHC.PC.OV ---
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 Patient has a past medical history significant for vitamin-D deficiency and slightly elevated liver enzymes. Had an issue with his right thumb and has gotten a cortisone injection which resolved his pain and locking symptoms. Concern--> no concerns today. Willing to get fasting labs done Vaccine: Declined FLu and COVID up-to-date with tetanus vaccine [facility] Surgical History No pertinent past surgical history Family History Father No problems noted. Mother Diabetes Acute CVA (cerebrovascular accident), Onset Age: 0m 0d Brother In good health Sister In good health Son In good health Son In good health Daughter In good health Daughter In good health Daughter In good health Social History Housing: Apartment Alcohol intake: never Patient Tobacco Use Status: Former Tobacco user Tobacco use type: Cigarette e-Cigarette/Vaping Use: Never Used service: No Current occupational status: employed Current occupation: [employer] Cognitive needs: No Hearing needs: No Vision needs: No Questionnaire PHQ-9 Over the last 2 weeks, how often have you been bothered by any of the following problems? 1. Little interest or pleasure in doing things: not at all 2. Feeling down, depressed, or hopeless: not at all 3. Trouble falling or staying asleep, or sleeping too much: not at all 4. Feeling tired or having little energy: several days 5. Poor appetite or overeating: not at all 6. Feeling bad about yourself - or that you are a failure or have let yourself or your family down: not at all 7. Trouble concentrating on things, such as reading the newspaper or watching television: not at all 8. Moving or speaking so slowly that other people could have noticed. Or the opposite - being so fidgety or restless that you have been moving around a lot more than usual: not at all 9. Thoughts that you would be better off or of hurting yourself in some way: not at all Total score: 1 Depression Screening Interpretation: Negative Depression Screening Done: Yes 45840 - PHQ-9 Billing: Yes Source: Developed by Drs. Jose Urias, Daniela Montanez, Bola Avery and colleagues, with an educational vesna from [employer]. Thrive Questionnaire Date Thrive assessed: 03/29/25 I am a: Patient What is your living situation today?: I have a steady place to live Within the past 12 months, did the food you bought not last and you didn't have the money to get more?: Often true Within the past 12 months, did you worry whether your food would run out before you got money to buy more?: Sometimes True Do you have trouble paying for medicines?: No Do you have trouble getting transportation to medical appointments?: No Do you have trouble paying your heating and electricity bill?: Yes Do you have trouble taking care of your child, family member or friend?: No Do you have trouble with day-to-day activities such as bathing, preparing meals, shopping, managing finances, etc.?: No Are you currently unemployed and looking for a job?: No Are you interested in more education?: No Please select the resources that you would like help with: Housing/Jail Currently or been in a relationship where the following occur: No concerns reported THRIVE Score: 3 AUDIT C Alcohol Use Questionnaire (AUDIT-C) 1. How often do you have a drink containing alcohol?: Never 3. How often do you have six or more drinks on one occasion?: Never Total Score: 0 MOSES-7 AMB Questionnaire MOSES-7 Date MOSES - 7 assessed: 03/29/25 Feeling nervous, anxious, or on edge: 0 = Not at all Not being able to stop or control worryin = Not at all Worrying too much about different things: 0 = Not at all Trouble relaxin = Not at all Being so restless that it is hard to sit still: 0 = Not at all Becoming easily annoyed or irritable: 0 = Not at all Feeling afraid as if something awful might happen: 0 = Not at all Total MOSES-7 score (0-4 normal; 5-9 mild; 10-14 moderate; 15-21 severe): 0 Source: Developed by Drs. Jose Urias, Daniela Montanez, Bola Avery and colleagues, with an educational vesna from [employer]. MOSES-7 Assessment Billing MOSES-7 Assessment Tool: MOSES-7 Assessment 77656 Review of Systems Const Denies body aches, Denies chills, Denies excessive sweating, Denies fatigue, Denies fever(s) and Denies headache(s) Eyes Denies blurry vision ENT Denies dysphagia, Denies vertigo, Denies dizziness, Denies headache(s), Denies hearing loss and Denies tinnitus Card Denies chest pain, Denies chest pain with activity, Denies syncope, Denies irregular heart rhythm and Denies dyspnea Resp Denies chest congestion, Denies cough, Denies hemoptysis, Denies dyspnea and Denies wheezing GI Denies abdominal pain, Denies melena, Denies hematochezia, Denies coffee ground emesis, Denies dysphagia, Denies diarrhea, Denies nausea and Denies vomiting Denies difficulty urinating, Denies dysuria, Denies urinary frequency, Denies urinary hesitancy and Denies urinary urgency Musc Denies arthralgias, Denies limited range of motion, Denies muscle cramps and Denies muscle weakness Skin/Breast Denies rash and Denies skin ulcer Neuro Denies Abnormal speech present, Denies confusion, Denies vertigo, Denies dizziness, Denies syncope, Denies headache(s), Denies memory loss and Denies seizure-like activity Psych Denies anxiety, Denies confusion, Denies depression, Denies memory loss, Denies panic attacks and Denies paranoia Endo Denies excessive sweating, Denies fatigue, Denies flushing, Denies polydipsia and Denies polyuria Aller/Immun Denies wheezing Physical exam (Primary Care) Vital Signs: Last Vital Signs Temp 97.8 F 03/29/25 15:25 Pulse 72 03/29/25 15:25 BP 146/90 H 03/29/25 15:25 Pulse Ox 97 03/29/25 15:25 Oxygen Delivery Method Room Air 03/29/25 15:25 BMI result Body Mass Index 29.2 Tobacco/Smoking Status: Tobacco use Status Tobacco use date assessed 03/29/25 03/29/25 15:19 Patient Tobacco Use Status Former Tobacco user 03/29/25 15:17 Tobacco use type Cigarette 03/29/25 15:17 e-Cigarette/Vaping Use Never Used 03/29/25 15:17 PHQ-9: PHQ-9 Score PHQ-9: Total score 1 03/29/25 15:17 Depression Screening Interpretation: Negative Thrive Assessment: Date of Thrive Assessment Date Thrive assessed 03/29/25 03/29/25 15:17 Currently or been in a relationship where the following occur: No concerns reported Const General: cooperative, comfortable, no acute distress, alert and awake; No confusion Orientation/consciousness: oriented to person, oriented to place, patient oriented x3 and No confusion HENMT Head: Yes normocephalic Ears: external ears normal and TM's normal bilaterally Face and sinus: No sinus tenderness Mouth: Normal oral and palatal mucosa present and tongue normal Teeth and gingiva: dentition normal and gingiva normal Throat: Yes posterior oropharynx normal, Yes tonsils normal and Yes uvula midline Eyes Conjunctivae: conjunctivae normal Sclerae: sclerae normal Pupils: Equal, round and reactive pupils present EOM: EOMs intact bilaterally Direct Ophthalmoscopy: No no photophobia Neck Neck: Yes no lymphadenopathy, No tender and Yes no JVD Thyroid: Thyroid normal Carotids: no bruits Chest Chest palpation & inspection: no tenderness Resp Effort & Inspection: normal respiratory effort, no audible wheezes, not labored and no stridor Auscultation: no crackles, no rales, no rhonchi and no wheezes Cardio Jugular venous distension: no JVD Rate: regular rate, not bradycardic and not tachycardic Rhythm: regular rhythm Bruits: no carotid bruits Peripheral pulses: Peripheral pulses 2+ throughout GI Inspection: Yes normal to inspection, No abdominal wall ecchymosis and No visible herniation Palpation (GI): Soft to palpation, nontender, no guarding, not rigid and No hepatosplenomegaly present Auscultation: normoactive bowel sounds General: Yes no CVA tenderness Back/Spine/Pelvis Back: no CVA tenderness and No back tenderness Cervical Spine: cervical ROM normal Thoracic/Lumbar Spine: thoracic and lumbar spine normal to inspection, straight leg raise negative bilaterally, No thoraco-lumbar ROM limited and No lumbar spinal tenderness Skin Lesions: no lesions Rashes: no rashes Wounds: no wounds Neuro General: oriented to person, oriented to place, patient oriented x3, CN's II-XI intact bilaterally and No confusion Cranial nerves: Yes Equal, round and reactive pupils present and Yes Normal accommodation reflex present Cognition (Neuro): normal cognition Speech: No Abnormal speech present Gait exam (Neuro): Normal gait present Motor exam (neuro): 5/5 motor strength present throughout Extrem Right upper extremity: full ROM; no cyanosis Left upper extremity: full ROM; no cyanosis Right lower extremity: no edema Left lower extremity: no edema Psych Appearance: grossly normal Mental Status: mental status grossly normal Affect: normal affect Attitude: cooperative Thought process: Normal thought process present Coding Level of Care Code Est Pt Prev Care 18-39y(24589) Diagnoses Annual physical exam Z00.00 Elevated liver enzymes R74.8 Screening for diabetes mellitus (DM) Z13.1 Vitamin D deficiency E55.9 Additional Codes MOSES-7 Assessment Billing - MOSES-7 Assessment Tool: MOSES-7 Assessment 54928 ([id number]) PHQ-9 - 38617 - PHQ-9 Billing: Yes ([id number]) Assessment & Plan Assessment & Plan (1) Annual physical exam: Code(s): Z00.00 - Encounter for general adult medical examination without abnormal findings Category: Medical Plan: As per HPI (2) Elevated liver enzymes: Code(s): R74.8 - Abnormal levels of other serum enzymes Category: Medical Plan: Patient has a history of elevated liver enzymes, he promises to get fasting labs done it has been 5 years since last labs. (3) Screening for diabetes mellitus (DM): Code(s): Z13.1 - Encounter for screening for diabetes mellitus Category: Medical Plan: As per HPI (4) Vitamin D deficiency: Code(s): E55.9 - Vitamin D deficiency, unspecified Category: Medical Plan: Patient does have vitamin-D deficiency. Orders: Orders Vitamin D 25-OH Total Today E55.9 - Vitamin D deficiency, unspecified Comprehensive [place]. Panel Fast Today Z13.1 - Encounter for screening for diabetes mellitus Complete Blood Count no Diff Today Z13.1 - Encounter for screening for diabetes mellitus
[2025-03-29 15:25] VITALS: BP 146/90; PULSE 72; TEMP 36.6; O2SAT 97; BMI 29.2
[2025-03-29 15:44] VITALS: BP 120/80
== END 2025-03-29 15:46 | disposition home or self-care (01) ==
LOC: HO.HMCH 14:57
PROVIDERS: PCP Physician Assistant; Visit Provider Physician Assistant
DX: Z00.00 Encounter for general adult medical examination without abnormal findings (principal); R74.8 Abnormal levels of other serum enzymes; Z13.1 Encounter for screening for diabetes mellitus; E55.9 Vitamin D deficiency, unspecified

== ENCOUNTER → 2025-03-29 14:56 | Outpatient (BNVA) | payer OTHER, SELFPAY | PROVIDERS: PCP Physician Assistant; Visit Provider Physician Assistant | DX: Z00.00 Encounter for general adult medical examination without abnormal findings (principal); R74.8 Abnormal levels of other serum enzymes; E55.9 Vitamin D deficiency, unspecified | CPT/HCPCS: 96127; 99395 ==